=== PATIENT | female | born 1975 | race Caucasian/White ===

== ENCOUNTER 2022-11-02 09:05 | Day surgery (SDC) | payer BC ==
--- NOTE | 2022-11-02 08:16 | HP ---
DATE OF SURGERY: 11/02/2022 HISTORY OF PRESENT ILLNESS: The patient is a 47-year-old with no bloody stools. Some chronic constipation a little worse recently. Family negative for colon cancer. No prior colonoscopy. She has cramping at times. PAST MEDICAL HISTORY: Anxiety. Polycystic ovarian syndrome. PAST SURGICAL HISTORY: Cholecystectomy. Bilateral foot surgery. MEDICATIONS: Buspirone, fluoxetine, metformin. ALLERGIES: SULFA. FAMILY HISTORY: Diabetes, hypertension. Negative for colon cancer. SOCIAL HISTORY: No smoking or alcohol abuse. REVIEW OF SYSTEMS: Fourteen systems reviewed. No chest pain or palpitations. Other systems negative or noncontributory as above and per preadmission questionnaire. PHYSICAL EXAMINATION: BMI 23.24. Height 5'6". GENERAL: No acute distress. HEENT: Sclerae nonicteric. NECK: No JVD. CHEST: Equal excursion, nonlabored breathing. CVS: Regular rate and rhythm. ABDOMEN: Soft. No peritoneal signs. EXTREMITIES: No significant edema. NEURO: Alert, oriented, moving extremities symmetrically. No gross motor deficits noted. RECTAL: Deferred timed to endoscopy exam. PSYCH: Appropriate mood and affect. SKIN: Dry. IMPRESSION: Change in bowel habits, abdominal cramps. She in need of colonoscopy to evaluate for colitis, neoplasia, inflammatory bowel disease or other etiology. I feel she is a candidate. She was shown the risk sheet, explained the procedure in detail including but not limited to risk of bleeding or infection, risk of bowel injury or perforation, risk of missed or nondiagnosis or incomplete exam possibly requiring barium enema, other studies or procedures, general risk of anesthesia or sedation, risk of bowel prep but not limited to, possibility of inability to diagnose the etiology of her symptoms possibly requiring other studies or referrals. She understands and agrees to the planned procedure, will proceed with outpatient colonoscopy under MAC anesthesia.
[~2022-11-02 09:05] MED LIST: Lactated Ringers 1,000 ML IV ONE; Lactated Ringers 1,000 ML IV SCH
[2022-11-02 09:27] VITALS: O2SAT 100
[2022-11-02] MEDS ORDERED: DIPRIVAN 200 MG/20 ML IV ONE ×2 (11:14→11:45)
[2022-11-02] MEDS ORDERED: Versed 2 MG/2 ML Injection ONE (11:14)
[2022-11-02 12:47] VITALS: BP 120/75
[2022-11-02 12:54] VITALS: PULSE 88
--- NOTE | 2022-11-02 13:24 | OP ---
SURGERY DATE/TIME: 11/02/2022 1141 PREOPERATIVE DIAGNOSIS: History of change in bowel habits, abdominal cramping, need for colonoscopy to evaluate for colitis, inflammatory bowel disease or other etiology. POSTOPERATIVE DIAGNOSES: 1) Fairly normal appearing colonic and ileal mucosa. 2) ASA Class II. 3) Fair bowel prep. 4) Withdrawal time approximately nine minutes. PROCEDURES: 1) Colonoscopy to terminal ileum. 2) Retrograde ileoscopy. 3) Random cold biopsy of ileum (staff unable retrieve the specimen). 4) Random cold biopsies of colon to evaluate for microscopic colitis. SURGEON: Dr. Nithin Hemphill. ANESTHESIA: MAC. ESTIMATED BLOOD LOSS: Minimal. INDICATIONS: As noted above. Risks and benefits explained in detail but not limited to and consent obtained. DESCRIPTION OF PROCEDURE AND FINDINGS: The patient is taken to the endoscopy room. MAC anesthesia induced. After official time out and no disagreement with planned procedure, digital rectal exam did not reveal any rectal masses. Video colonoscope inserted and passed up through the slightly tortuous sigmoid, descending, transverse and ascending colon. Requiring positioning on her back and a couple of staff members pushing on her abdomen the scope was able to be passed around to the ileum. Up in the ileum retrograde ileoscopy is performed which was grossly unremarkable. Some random cold biopsies were taken. Appendiceal orifice and valve well visualized and photo documented. The scope is carefully withdrawn over the next nine minutes and going back through there the staff thought they did not have the specimens from the ileum biopsy. Random cold biopsy taken in the colon to evaluate for microscopic colitis. Good hemostasis was noted. No signs of any large polyps, masses or obstructing lesion. Findings discussed with the family out in the waiting area.
== END 2022-11-02 13:00 | disposition home or self-care (01) ==
LOC: SDC 09:05
PROVIDERS: ATTEND Surgery
DX: R19.4 Change in bowel habit (principal); R10.9 Unspecified abdominal pain
CPT/HCPCS: 36415; 84703; J2250; J2704